=== PATIENT | female | born 1985 | race Caucasian/White ===

== ENCOUNTER 2017-07-24 18:02 | Emergency (ER) | payer OTHER ==
[~2017-07-24] VITALS: Ht 157.5 cm; Wt 77.2 kg
[~2017-07-24 18:02] MED LIST: LRT5 PO; PENI-82 PO; TRAM-10 PO
[2017-07-24] MEDS ORDERED: MoRPHine SULFATE 10 MG/ML CARP/VIAL ONE (18:06)
[2017-07-24] MEDS ORDERED: ONDANSETRON INJ 2 MG/ML 2 ML VIAL ONE (18:07)
[2017-07-24 18:14] VITALS: TEMP 36.4; Ht 157.5 cm; Wt 77.2 kg
[2017-07-24] MEDS ORDERED: KETOROLAC TROMETHAMINE 30 MG/ML VIAL IV STA (18:17)
[2017-07-24] MEDS ORDERED: SODIUM CHLORIDE 0.9% 1000ML 1,000 ML IV STA (18:17)
[2017-07-24] MEDS ORDERED: ONDANSETRON INJ 2 MG/ML 2 ML VIAL IV STA (18:17)
[2017-07-24] MEDS ORDERED: MoRPHine SULFATE 10 MG/ML CARP/VIAL IV STA (18:17)
[2017-07-24] MEDS ORDERED: TAMSULOSIN HCL 0.4 MG CAP PO ONE (18:30)
[2017-07-24 18:51] LABS: BASO % 0.2 %; BASO ABS # 0.02 K/uL (0-0.2); EOS % 0.5 %; EOS ABS # 0.05 K/uL (0-0.5); HEMATOCRIT 38.6 % (37-47); HEMOGLOBIN 13.4 g/dL (12.0-16.0); IG# 0.02 K/uL (0.00-0.02); LYMPH % 20.8 %; LYMPH ABS # 2.03 K/uL (1.2-3.4); MEAN CELL VOLUME 88.9 fL (80-100); MEAN CORPUSCULAR HEMOGLOBIN 30.9 pg (25-34); MEAN CORPUSCULAR HGB CONC 34.7 g/dl (32-36); MEAN PLATELET VOLUME 9.7 fL (7.4-10.4); MONO % 5.1 %; NEUT % 73.2 %; NEUT ABS # 7.15 K/uL (1.4-6.5); PLATELET COUNT 370 K/uL (130-400); RED CELL DISTRIBUTION WIDTH CV 11.8 % (11.5-14.5); RED CELL DISTRIBUTION WIDTH SD 38.1 fL (36.4-46.3); WHITE BLOOD COUNT 9.77 K/uL (4.8-10.8)
[2017-07-24] MEDS ORDERED: PARO10TA PO (18:56)
[2017-07-24 19:34] LABS: ALBUMIN 3.8 gm/dl (3.4-5.0); CALCIUM 9.6 mg/dl (8.5-10.1); CREATININE 1.13 mg/dl (0.60-1.20)
--- NOTE | 2017-07-24 19:48 | DIAGNOSTIC IMAGING REPORT ---
CT OF THE ABDOMEN AND PELVIS WITHOUT CONTRAST, STONE PROTOCOL CLINICAL HISTORY: Right flank pain. COMPARISON STUDY: None. TECHNIQUE: Helical axial images of the abdomen and pelvis were obtained without IV or oral contrast according to renal stone protocol. A dose lowering technique was utilized adhering to the principles of ALARA. FINDINGS: A 4 mm proximal right ureteral calculus located at or just distal to the ureteropelvic junction results in mild right hydronephrosis with mild perinephric infiltration. Multiple small right renal calculi measure up to 3 mm. There are punctate left renal calculi. There are no additional ureteral calculi. Evaluation of the remainder of the abdomen and pelvis is suboptimal on this unenhanced exam. Unenhanced images of liver, spleen, adrenal glands and pancreas are unremarkable. Caliber of small and large bowel are normal. The appendix is normal. Trace free fluid is likely physiologic. There is no lymphadenopathy. There are no suspicious osseous lesions. 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 IMPRESSION: 1. 4 mm proximal right ureteral calculus which results in mild right hydronephrosis. 2. Bilateral nephrolithiasis. Electronically signed by: Carlos Richards M.D. 07/24/2017 7:47 PM Dictated Date/Time: 07/24/2017 7:43 PM
[2017-07-24] MEDS ORDERED: OXYC1TAB3 PO (20:42)
[2017-07-24] MEDS ORDERED: TAMS0.4C38 PO (20:42)
[2017-07-24] MEDS ORDERED: ONDA4TAB10 SL (20:42)
--- NOTE | 2017-07-24 20:43 | EMERGENCY ROOM VISIT NOTE ---
History First contact with patient: 18:12 Chief Complaint: FLANK PAIN Stated Complaint: R FLANK PAIN History of Present Illness The patient is a 31 year old female who presents to the Emergency Room via ambulance with complaints of acute onset of right flank pain which started at 4: 30 PM. The patient states she also has diffuse sweating and some nausea but denies any vomiting. The patient denies any change in bowel habits. The patient denies any urinary symptoms of frequency, urgency, dysuria or hematuria. This patient denies any pain in the abdomen. The patient denies any chest pain or shortness of breath she does admit that her back pain gets worse with deep inspiration. Or any movement. The patient denies any personal or family history of kidney stones. Review of Systems 10 system review was performed and was negative unless stated otherwise history of present illness. Past Medical/Surgical History No significant past medical history Social History Smoking Status: Never Smoker Alcohol Use: none Drug Use: none Housing Status: lives alone Occupation Status: employed Current/Historical Medications Scheduled Paroxetine Hcl (Paxil), 10 MG PO DAILY Physical Exam Vital Signs Date Time Temp Pulse Resp B/P (MAP) Pulse Ox O2 Delivery O2 Flow Rate FiO2 07/24/17 19:23 68 18 108/61 100 Room Air 07/24/17 18:23 73 07/24/17 18:14 36.4 73 24 118/81 98 Room Air Physical Exam GENERAL: 31-year-old white female appears uncomfortable secondary to pain. MENTAL Status: Alert and oriented 3. MOUTH: Mucosa is moist NECK: Supple, no lymphadenopathy noted. No carotid bruits noted. LUNGS: Clear auscultation without wheezes rales or rhonchi. CARDIAC: Regular rate and rhythm without murmur. Pulses is full and equal throughout. BACK: No CVA tenderness noted. ABDOMEN: Positive bowel sounds all 4 quadrants. Soft, nontender to palpation without organomegaly or masses. EXTREMITIES: No cyanosis or edema noted. Medical Decision & Procedures ER Provider Diagnostic Interpretation: Patient Name: CONCEPCIÓN RIVERA Unit Number: [id number] Dictated: 07/24/171942 Transcribed: 07/24/171942 JA Printed Date/Time: [~ rep prt dt]/[~ rep prt tm] [~ rep ct labl] - [~ rep ct ivnm] [facility] [place] [address] Dictated: 07/24/171942 Transcribed: 07/24/171942 JA Printed Date/Time: [~ rep prt dt]/[~ rep prt tm] [~ rep ct labl] - [~ rep ct ivnm] CT OF THE ABDOMEN AND PELVIS WITHOUT CONTRAST, STONE PROTOCOL CLINICAL HISTORY: Right flank pain. COMPARISON STUDY: None. TECHNIQUE: Helical axial images of the abdomen and pelvis were obtained without IV or oral contrast according to renal stone protocol. A dose lowering technique was utilized adhering to the principles of ALARA. FINDINGS: A 4 mm proximal right ureteral calculus located at or just distal to the ureteropelvic junction results in mild right hydronephrosis with mild perinephric infiltration. Multiple small right renal calculi measure up to 3 mm. There are punctate left renal calculi. There are no additional ureteral calculi. Evaluation of the remainder of the abdomen and pelvis is suboptimal on this unenhanced exam. Unenhanced images of liver, spleen, adrenal glands and pancreas are unremarkable. Caliber of small and large bowel are normal. The appendix is normal. Trace free fluid is likely physiologic. There is no lymphadenopathy. There are no suspicious osseous lesions. 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 IMPRESSION: 1. 4 mm proximal right ureteral calculus which results in mild right hydronephrosis. 2. Bilateral nephrolithiasis. Electronically signed by: Carlos Richards M.D. 07/24/2017 7:47 PM Dictated Date/Time: 07/24/2017 7:43 PM The status of this report is Signed. Draft = Not yet reviewed or approved by Radiologist. Signed = Reviewed and approved by Radiologist. <AttendingPhy></AttendingPhy> <FamilyPhy>Sheridan Richard D.O.</FamilyPhy> < PrimaryPhy>Sheridan Richard D.O.</PrimaryPhy> <UnitNumber>[id number]</ UnitNumber> <VisitNumber>[id number]</VisitNumber> <PatientName>NICOLE CONCEPCIÓN Beckie</PatientName> <DateOfBirth>1985</DateOfBirth> <Location>[facility]</ Location> <ServiceDate>07/24/17</ServiceDate> <MNE>ESINDI</MNE> <OrderingPhy> Caridad Roberts PA-C</OrderingPhy> <OrderingPhyMNE>f rep ord dr langston</ OrderingPhyMNE> <DictatingPhyMNE>f rep dict dr langston</DictatingPhyMNE> <CCListMNE> f rep ct mne</CCListMNE> <AdmittingPhyMNE>f pt admit dr langston</AdmittingPhyMNE> < AttendingPhyMNE>f pt attend dr langston</AttendingPhyMNE> <ConsultingPhyMNE>f pt consult dr langston</ConsultingPhyMNE> <FamilyPhyMNE>f pt fam dr langston</FamilyPhyMNE> <OtherPhyMNE>f pt other dr langston</OtherPhyMNE> < PrimaryPhyMNE>f pt prim care dr langston</PrimaryPhyMNE> <ReferringPhyMNE>f pt referring dr langston</ReferringPhyMNE> Laboratory Results 07/24/17 18:30 Red Blood Count 4.34, Mean Corpuscular Volume 88.9, Mean Corpuscular Hemoglobin 30.9, Mean Corpuscular Hemoglobin Concent 34.7, Mean Platelet Volume 9.7, Neutrophils (%) (Auto) 73.2, Lymphocytes (%) (Auto) 20.8, Monocytes (%) (Auto) 5.1, Eosinophils (%) (Auto) 0.5, Basophils (%) (Auto) 0.2, Neutrophils # (Auto) 7.15, Lymphocytes # (Auto) 2.03, Monocytes # (Auto) 0.50, Eosinophils # (Auto) 0.05, Basophils # (Auto) 0.02 07/24/17 18:30 Test 07/24/17 00:00 07/24/17 18:30 Urine Color YELLOW Urine Appearance CLEAR (CLEAR) Urine pH 7.0 (4.5-7.5) Urine Specific [place] 1.023 (1.000-1.030) Urine Protein NEG (NEG) Urine Glucose (UA) NEG (NEG) Urine Ketones 3+ (NEG) Urine Occult Blood TRACE (NEG) Urine Nitrite NEG (NEG) Urine Bilirubin NEG (NEG) Urine Urobilinogen NEG (NEG) Urine Leukocyte Esterase NEG (NEG) Urine WBC (Auto) 1-5 /hpf (0-5) Urine RBC (Auto) 5-10 /hpf (0-4) Urine Hyaline Casts (Auto) 10-30 /lpf (0-5) Urine Epithelial Cells (Auto) >30 /lpf (0-5) Urine Bacteria (Auto) NEG (NEG) Urine Renal Epithelial Cells 0-5 /lpf (0-5) White Blood Count 9.77 K/uL (4.8-10.8) Red Blood Count 4.34 M/uL (4.2-5.4) Hemoglobin 13.4 g/dL (12.0-16.0) Hematocrit 38.6 % (37-47) Mean Corpuscular Volume 88.9 fL (80-100) Mean Corpuscular Hemoglobin 30.9 pg (25-34) Mean Corpuscular Hemoglobin Concent 34.7 g/dl (32-36) Platelet Count 370 K/uL (130-400) Mean Platelet Volume 9.7 fL (7.4-10.4) Neutrophils (%) (Auto) 73.2 % Lymphocytes (%) (Auto) 20.8 % Monocytes (%) (Auto) 5.1 % Eosinophils (%) (Auto) 0.5 % Basophils (%) (Auto) 0.2 % Neutrophils # (Auto) 7.15 K/uL (1.4-6.5) Lymphocytes # (Auto) 2.03 K/uL (1.2-3.4) Monocytes # (Auto) 0.50 K/uL (0.11-0.59) Eosinophils # (Auto) 0.05 K/uL (0-0.5) Basophils # (Auto) 0.02 K/uL (0-0.2) RDW Standard Deviation 38.1 fL (36.4-46.3) RDW Coefficient of Variation 11.8 % (11.5-14.5) Immature Granulocyte % (Auto) 0.2 % Immature Granulocyte # (Auto) 0.02 K/uL (0.00-0.02) Anion Gap 11.0 mmol/L (3-11) Est Creatinine Clear Calc Drug Dose 70.0 ml/min Estimated GFR () 75.5 Estimated GFR (Non- 65.2 BUN/Creatinine Ratio 14.5 (10-20) Calcium Level 9.6 mg/dl (8.5-10.1) Total Bilirubin 0.5 mg/dl (0.2-1) Direct Bilirubin mg/dl (0-0.2) Aspartate Amino Transf (AST/SGOT) U/L (15-37) Alanine Aminotransferase (ALT/SGPT) 25 U/L (12-78) Alkaline Phosphatase 59 U/L (45-117) Total Protein 8.0 gm/dl (6.4-8.2) Albumin 3.8 gm/dl (3.4-5.0) Lipase 141 U/L (73-393) Medications Administered Medications (Trade) Dose Ordered Sig/Imtiaz Route Start Time Stop Time Status Last Admin Dose Admin Sodium Chloride 1,000 ml @ 999 mls/hr Q1H1M STAT IV 07/24/17 18:17 07/24/17 19:17 DC 07/24/17 18:36 999 MLS/HR Ketorolac Tromethamine (Toradol Inj) 30 mg NOW STAT IV 07/24/17 18:17 07/24/17 18:19 DC 07/24/17 18:40 30 MG Morphine Sulfate (MoRPHine SULFATE INJ) 6 mg NOW STAT IV 07/24/17 18:17 07/24/17 18:19 DC 07/24/17 18:36 6 MG Ondansetron HCl (Zofran Inj) 4 mg NOW STAT IV 07/24/17 18:17 07/24/17 18:19 DC 07/24/17 18:36 4 MG Tamsulosin HCl (Flomax Cap) 0.4 mg NOW ONCE PO 07/24/17 18:30 07/24/17 18:31 DC 07/24/17 18:37 0.4 MG ED Course The patient was evaluated. IV access was obtained. The patient was given 1 L normal saline wide-open. CBC and differential, renal profile, LFTs and lipase levels were ordered. Urinalysis was ordered. Urinalysis revealed +1 blood and +3 ketones. No bacteria was noted. Culture is pending. Labs are reviewed. Labs are unremarkable. The patient was given Toradol 30 mg IV, morphine 6 mg IV , Zofran 4 mg IV and Flomax 0.[address] stone study was ordered turbid by the radiologist as above with a 4 mm stone in the proximal right ureter. The patient was reevaluated was feeling better. The patient was informed of the findings. The patient was given a Zofran home pack and an OxyIR home pack. The patient was discharged home with a friend driving. Medical Decision Differential diagnosis include UTI, pyelonephritis, kidney stone, acute appendicitis [place] Drug Monitoring Program Search Results: patient reviewed within database Medication Reconcilliation Current Medication List: was personally reviewed by me Blood Pressure Screening Patient's blood pressure: Normal blood pressure Impression Primary Impression: Right ureteral calculus Additional Impression: Ketonuria Departure Information Dispostion Home / Self-Care Condition GOOD Prescriptions Oxycodone Immediate Rel Tab (ROXICODONE IR) 5 Mg Tab 1-2 TAB PO Q4H Y for Pain, #24 TAB Prov: Caridad Roberts PA-C 07/24/17 Tamsulosin Hcl (FLOMAX) 0.4 Mg Cap 0.4 MG PO DAILY for 7 Days, #7 CAP Prov: Caridad Roberts PA-C 07/24/17 Ondasetron Odt (ZOFRAN ODT) 4 Mg Tab 4 MG SL Q6H for Nausea, #10 TAB Prov: Caridad Roberts PA-C 07/24/17 Referrals Fay Wise M.D. (PCP) Forms HOME CARE DOCUMENTATION FORM, IMPORTANT VISIT INFORMATION Patient Instructions Kidney Stones - [facility], [facility] Additional Instructions Push fluids. Stay well-hydrated. Make sure your eating properly. Strain all urine. Take Flomax daily as directed. Ibuprofen 600 mg every 6 hours with food for pain. Take OxyIR as needed for more severe pain. Do not drive while taking the OxyIR. Take Zofran as needed for nausea. If you experience any severe uncontrolled pain, uncontrolled nausea or fever return to ER immediately. If you do not pass the stone in 5 days, call Dr. Crawford. Problem Qualifiers
[2017-07-24] MEDS ORDERED: ONDANSETRON HOME PACK 4MG OD TAB PO ONE (20:45)
[2017-07-24] MEDS ORDERED: OXYCODONE IR HOME PACK PO ONE (20:45)
[2017-07-24 20:54] VITALS: BP 104/75; PULSE 75; O2SAT 100
== END 2017-07-24 20:56 | disposition home or self-care (01) ==
LOC: EDBD 18:02 → C.EDA 18:03
DX: N20.1 Calculus of ureter (principal); R82.4 Acetonuria; Z79.899 Other long term (current) drug therapy